=== PATIENT | female | born 1980 | race Caucasian/White ===

== ENCOUNTER 2017-04-07 15:17 | Emergency (ER) | payer MEDICAID ==
[~2017-04-07] VITALS: Ht 4948.4 cm; Wt 42.6 kg
[~2017-04-07 15:17] MED LIST: ALBU6.7H INH; HYDR-569 PO; IBUP-1573 PO; PHEN-873 PO
[2017-04-07] MEDS ORDERED: BACDS PO (17:21)
[2017-04-07] MEDS ORDERED: mupirocin 2% ointment 22GM TP STA (17:22)
[2017-04-07] MEDS ORDERED: sulfamethoxazole/trimethoprim DS (800/160mg) tablet PO ONE (17:25)
[2017-04-07] MEDS ORDERED: traMADol 50MG tablet PO ONE (17:25)
[2017-04-07 18:19] VITALS: BP 124/84
== END 2017-04-07 18:23 | disposition home or self-care (01) ==
LOC: ER 15:17
DX: L03.116 Cellulitis of left lower limb (principal); L03.113 Cellulitis of right upper limb; L03.211 Cellulitis of face; Z90.710 Acquired absence of both cervix and uterus; F17.210 Nicotine dependence, cigarettes, uncomplicated; Z88.1 Allergy status to other antibiotic agents; Z88.5 Allergy status to narcotic agent
CPT/HCPCS: 99283

== ENCOUNTER 2017-11-20 02:27 | Emergency (ER) | payer MEDICAID, OTHER ==
[~2017-11-20] VITALS: Ht 147.3 cm; Wt 45.5 kg
[~2017-11-20 02:27] MED LIST changes: +PHEN-786 PO; -PHEN-873 PO
[2017-11-20 02:33] VITALS: BP 104/70
[2017-11-20 05:28] LABS: URINE HCG NEGATIVE (NEG)
== END 2017-11-20 08:37 | disposition home or self-care (01) ==
LOC: ER 02:27 → EEVIPCON 02:27 → ER 08:37
DX: T74.21XA Adult sexual abuse, confirmed, initial encounter (principal); Z53.21 Procedure and treatment not carried out due to patient leaving prior to being seen by health care provider; Y07.9 Unspecified perpetrator of maltreatment and neglect
CPT/HCPCS: 81025; 99281

== ENCOUNTER 2018-10-08 18:24 | Emergency (ER) | payer MEDICAID, OTHER ==
[~2018-10-08] VITALS: Ht 149.9 cm; Wt 51.8 kg
[~2018-10-08 18:24] MED LIST changes: -ALBU6.7H INH; +ALBU6.7H9 INH; +HYDR-4383 PO; -HYDR-569 PO
[2018-10-08 18:28] VITALS: BP 128/97
[2018-10-08] MEDS ORDERED: LORazepam 0.5 MG tablet PO STA (18:57)
[2018-10-08] MEDS ORDERED: ondansetron 4mg rapidly disintigrating tab PO ONE (19:00)
[2018-10-08] MEDS ORDERED: ONDA4TAB6 PO (20:12)
== END 2018-10-08 20:22 | disposition home or self-care (01) ==
LOC: ER 18:25
DX: R07.89 Other chest pain (principal); R11.0 Nausea; R51 Headache; R00.2 Palpitations; M79.7 Fibromyalgia; I49.1 Atrial premature depolarization; F12.90 Cannabis use, unspecified, uncomplicated; Z90.710 Acquired absence of both cervix and uterus; Z86.2 Personal history of diseases of the blood and blood-forming organs and certain disorders involving the immune mechanism; Z98.890 Other specified postprocedural states; Z88.5 Allergy status to narcotic agent; Z88.8 Allergy status to other drugs, medicaments and biological substances; Z88.1 Allergy status to other antibiotic agents; Z79.899 Other long term (current) drug therapy
CPT/HCPCS: 93005; 99283; J2405

== ENCOUNTER 2020-08-04 19:43 | Emergency (ER) | payer MEDICAID, OTHER ==
[~2020-08-04] VITALS: Ht 149.9 cm; Wt 50.0 kg
[~2020-08-04 19:43] MED LIST changes: +ONDA4TAB6 PO
[2020-08-04] MEDS ORDERED: LORazepam 1 MG tablet PO ONE (20:55)
[2020-08-04 22:02] VITALS: BP 128/99
== END 2020-08-04 22:04 | disposition home or self-care (01) ==
LOC: ER 19:43
DX: F41.9 Anxiety disorder, unspecified (principal); M79.7 Fibromyalgia; Z86.2 Personal history of diseases of the blood and blood-forming organs and certain disorders involving the immune mechanism; Z87.440 Personal history of urinary (tract) infections; Z98.891 History of uterine scar from previous surgery; Z90.710 Acquired absence of both cervix and uterus; Z98.890 Other specified postprocedural states; Z88.1 Allergy status to other antibiotic agents; Z88.6 Allergy status to analgesic agent; Z88.8 Allergy status to other drugs, medicaments and biological substances; Z79.899 Other long term (current) drug therapy
CPT/HCPCS: 99283

== ENCOUNTER 2020-08-13 07:47 | Emergency (ER) | payer MEDICAID ==
[~2020-08-13] VITALS: Ht 149.9 cm; Wt 48.6 kg
[2020-08-13 07:59] VITALS: BP 158/107
[2020-08-13] MEDS ORDERED: LORazepam 1 MG tablet PO ONE (08:25)
[2020-08-13] MEDS ORDERED: LORA-269 PO (08:37)
== END 2020-08-13 08:47 | disposition home or self-care (01) ==
LOC: ER 07:48
DX: F41.9 Anxiety disorder, unspecified (principal); R07.89 Other chest pain; R19.7 Diarrhea, unspecified; F43.10 Post-traumatic stress disorder, unspecified; M79.7 Fibromyalgia; Z88.1 Allergy status to other antibiotic agents; Z88.6 Allergy status to analgesic agent; Z88.8 Allergy status to other drugs, medicaments and biological substances; Z79.899 Other long term (current) drug therapy; Z86.2 Personal history of diseases of the blood and blood-forming organs and certain disorders involving the immune mechanism; Z87.440 Personal history of urinary (tract) infections; Z90.710 Acquired absence of both cervix and uterus; Z98.891 History of uterine scar from previous surgery
CPT/HCPCS: 99283

== ENCOUNTER 2021-10-13 17:50 | Emergency (ER) | payer MEDICAID ==
[~2021-10-13] VITALS: Ht 149.9 cm; Wt 47.7 kg
[~2021-10-13 17:50] MED LIST changes: +LORA-269 PO
[2021-10-13] MEDS ORDERED: IOHEXOL 12MG/ML oral solution 500 ML BOTTLE PO ONE (18:40)
[2021-10-13 19:10] LABS: BASOPHILS # (AUTO) 0.1 X10'3 (0-0.2); BASOPHILS % (AUTO) 0.8 % (0-1); EOSINOPHILS # (AUTO) 0.2 X10'3 (0-0.9); EOSINOPHILS % (AUTO) 1.8 % (0-6); HEMATOCRIT 44.1 % (35.0-45.0); HEMOGLOBIN 15.2 g/dl (12.0-16.0); LYMPHOCYTES # (AUTO) 2.9 X10'3 (1.1-4.8); LYMPHOCYTES % (AUTO) 34.8 % (21-51); MEAN CORPUSCULAR HEMOGLOBIN 33.9 PG (27.0-31.0); MEAN CORPUSCULAR HGB CONC 34.5 g/dL (33.0-36.5); MEAN CORPUSCULAR VOLUME 98.1 FL (78-98); MEAN PLATELET VOLUME 7.5 FL (7.4-10.4); MONOCYTES # (AUTO) 0.6 X10'3 (0-0.9); MONOCYTES % (AUTO) 7.2 % (2-12); NEUTROPHILS # (AUTO) 4.7 X10'3 (1.8-7.7); NEUTROPHILS % (AUTO) 55.4 % (42-75); PLATELET COUNT 317 X10'3 (140-440); RED CELL DISTRIBUTION WIDTH 13.8 % (11.5-14.5); WHITE BLOOD COUNT 8.4 X10'3 (4.5-11.0)
[2021-10-13 19:16] LABS: CLARITY,URINE CLEAR (Clear); COLOR,URINE YELLOW (Yellow); GLUCOSE, URINE NEGATIVE (Neg); KETONES,URINE NEGATIVE (Neg); LEUKOCYTE ESTERASE ,URINE NEGATIVE (Neg); NITRITES, URINE NEGATIVE (Neg); OCCULT BLOOD,URINE NEGATIVE (Neg); PROTEIN,URINE NEGATIVE (Neg); UROBILINOGEN,URINE 0.2 E.U/dL (0.2-1.0)
[2021-10-13 19:17] LABS: URINE HCG NEGATIVE (NEG)
[2021-10-13 19:22] LABS: UA COLLECTION TYPE CLN CATCH MIDSTREAM
[2021-10-13 19:22] LABS: APTT 29 SECONDS (22-32)
[2021-10-13 19:29] LABS: ALANINE AMINOTRANSFERASE 13 U/L (12-78); ALBUMIN 3.8 G/DL (3.4-5.0); ALBUMIN/GLOBULIN RATIO 0.8 (1.1-1.5); ALKALINE PHOSPHATASE 88 IU/L (46-116); ANION GAP 10 (8-16); ASPARTATE AMINO TRANSFERASE 4 U/L (10-37); BILIRUBIN,TOTAL 0.2 MG/DL (0.1-1.0); BLOOD UREA NITROGEN 14 MG/DL (7-18); BUN/CREATININE RATIO 21.2 (6.6-38.0); CALCIUM 8.9 MG/DL (8.5-10.1); CHLORIDE 100 MMOL/L (99-107); CHOL/HDL RATIO 3.8 (0.00-4.99); CHOLESTEROL 225 MG/DL (0-200); CREATININE 0.66 MG/DL (0.40-0.90); GLUCOSE 99 MG/DL (70-104); HDL CHOLESTEROL 59 MG/DL (35-60); LDL CHOLESTEROL 109 MG/DL (50-100); LIPASE 161 U/L (73-393); SODIUM 138 MMOL/L (135-145); TOTAL CARBON DIOXIDE 27.6 MMOL/L (24-32); TOTAL PROTEIN 8.4 G/DL (6.4-8.2); TRIGLYCERIDES 452 MG/DL (20-135); eGFR > 90 ML/MIN
[2021-10-13 19:33] LABS: POTASSIUM 3.9 MMOL/L (3.5-5.1)
[2021-10-13] MEDS ORDERED: iohexol 350MG/ML 100ml bottle IV ONE (19:52)
[2021-10-13 21:42] VITALS: BP 126/93
== END 2021-10-13 21:55 | disposition home or self-care (01) ==
LOC: ER 17:50
DX: N83.201 Unspecified ovarian cyst, right side (principal); R10.31 Right lower quadrant pain; F41.9 Anxiety disorder, unspecified; F12.90 Cannabis use, unspecified, uncomplicated; Z86.2 Personal history of diseases of the blood and blood-forming organs and certain disorders involving the immune mechanism; Z87.440 Personal history of urinary (tract) infections; Z90.710 Acquired absence of both cervix and uterus; Z98.890 Other specified postprocedural states; Z72.89 Other problems related to lifestyle; Z88.1 Allergy status to other antibiotic agents; Z88.5 Allergy status to narcotic agent; Z88.8 Allergy status to other drugs, medicaments and biological substances; Z79.899 Other long term (current) drug therapy
CPT/HCPCS: 36415; 74177; 76700; 76856; 80053; 80061; 81003; 81025; 83690; 83735; 85025; 85610; 85730; 93976; 99285; J3490; J7030; Q9967